=== PATIENT | male | born 1970 | race Caucasian/White ===

== ENCOUNTER 2017-04-10 15:23 | Emergency (ER) | payer OTHER ==
[~2017-04-10] VITALS: Ht 177.8 cm; Wt 73.9 kg
[~2017-04-10 15:23] MED LIST: NOMEDS *; VICODIN 5/500 T1 TAB PO; VOLTAREN75 MG PO
--- NOTE | 2017-04-10 16:48 | [facility]gent Treatment [facility] Report ---
History of Present Issue Date/Time Seen by Provider 04/10/17 1647 Visit Reason Pt arrived:Walked Presenting Problem:PT IS C/O ACHES/CHILLS AND A SORE THROAT Location if Accident: Onset of symptoms date/time:/ or onset unknown for:MEDICAL HX UNKNOWN Have you (or family members/close friends) recently traveled outside the [place]? N If Yes, where/when: Have you had exposure to infectious disease within the past month? TB? Other? Specify: c/o bodyaches, chills, sore throat, sinus pressure, nasal congestion, ear pressure x1.5 weeks. Was seen at [facility] in [place] one week ago. Strep neg. Fluid on ears and slightly erythematous throat he reports. Told viral. Sudafed and mucinex help "but wear off". Hasn't taken or tried anything else. NO known sick contacts. Unsure about fevers. Nonsmoker. No form of tobacco use. Source patient Exam Limitations no limitations ALLERGIES Coded Allergies: Penicillins (04/10/17) vancomycin (04/10/17) Home Medications Reported Medications No Home Medications (NO HOME MEDICATIONS) 1 X * ONCE History Medical History General Angina: No OR: No Hypertension? No Hyperlipidemia? No CHF? No COPD? No Asthma? No CVA? No Seizures? No Diabetes? No GB Disease: No MRSA? No TB? No Cancer? No Immunization HX DT/Tetanus 5-10 YRS Surgical Hx Previous Surgery?Y Hernia Repair WISDOM TEETH EXTRACTION CYST REMOVAL FROM RT LEG ORAL SURGERY Social History Smoking Hx Smoker: Never Smoker Tobacco: No Alcohol Alcohol: No Review of Systems All Other Systems Reviewed and Negative Constitutional see HPI, denies weakness Eyes denies drainage, denies inflammation ENT see HPI. denies: ear discharge, throat swelling. Respiratory cough (minimal, nonprod), denies shortness of breath, denies wheezing Cardiovascular denies chest pain, denies palpitations Gastrointestinal denies no symptoms reported Musculoskeletal see HPI Skin denies rash Psychiatric/Neurological headache ("mostly feels full") Physical Exam Vital Signs Vital Signs Date Time Temp Pulse Resp B/P Pulse O2 O2 Flow FiO2 Ox Delivery Rate 04/10 1710 98.6 96 20 132/92 98 04/10 1638 98.6 96 20 132/92 98 General Appearance normal appearance, no apparent distress, pleasant Eye Exam - bilateral eye normal exam Ear, Nose, Throat jaren EACs and TM unremarkable, jaren nares w/ mild nasal congestions but thick yellow drainage, cobblestoning but otherwise normal pharynx, dark brown discoloration to tongue (pt adamently denies tobacco use, present x weeks, attributed it to coffee, denies change, no pain), moderate frontal sinus TTP, no maxillary sinus tenderness Neck non-tender, supple Respiratory Status No: respiratory distress, productive cough, non productive cough. Lung Sounds anterior: lungs clear. posterior: lungs clear. bilateral: lungs clear. Cardiovascular regular rate/rhythm, no peripheral edema, no murmur Neurologic alert, oriented x 3 Mental status normal mood/affect Skin normal color, warm/dry Lymphatic no adenopathy Medical Decision Making LABS/Meds/Orders Pt receiving controlled substance in ED? No Results/Orders Orders Procedure Date/time Status [facility] FLU A,B 04/10 1644 Active Departure Departure Time of Disposition 1706 Disposition DC Home or Self Care(routine) Clinical Impression Primary Impression: Acute frontal sinusitis Qualifiers: Recurrence: non-recurrent Qualified Code: J01.10 - Acute frontal sinusitis, unspecified Secondary Impressions: Tongue discoloration Condition STABLE Referrals NO REFERRAL Follow up with your primary care doctor for new, worsening or unresolved symptoms related to your sinus symptoms but call Wednesday and schedule follow up appointment to discuss tongue discoloration. Patient Instructions DI for Sinusitis Additional Instructions * Start antibiotic and be sure to take as ordered for the FULL length of time even if you feel better. Since you have had a severe reaction to penicillin in the past and can not confirm you have taken cephlosporin antibiotics, I have prescribed doxycycline. Sinus infections do not get better overnight. It may take 2-3 days to notice much improvement so be sure to use conservative measures as discussed for symptoms. * OK to continue Sudafed since it has been helping. * Flonase 2 sprays each nostril daily to help with nasal congestion, sinus and ear pressure/inflammation * Start steroid today. Helps with inflammation therefore, pressure and congestion. Follow directions on package. Rvwd side effects. Pt reports they have taken them before. * Lots of fluids * Sleep elevated * Humidifier/vaporizer Discharge Counseling Counseled pt/family regarding diagnosis, medications/RX, home care, follow up needs Prescriptions Current Visit Scripts Doxycycline Hyclate (Vibramycin) 100 MG PO BID #20 CAP Fluticasone Propionate (Flonase 50 Mcg Nasal [place]) 2 SPRAY NA DAILY #1 BOT Prednisone (Prednisone 20MG) 20 MG PO BID #10 TAB at 1711
[2017-04-10 17:10] VITALS: BP 132/92
[2017-04-10] MEDS ORDERED: DOXYCYCLINE HY100 M4 PO (17:10)
[2017-04-10] MEDS ORDERED: PREDNISONE 20MG20 MG PO (17:10)
[2017-04-10] MEDS ORDERED: FLONASE 50 MCG16 GM (17:10)
== END 2017-04-10 17:19 | disposition home or self-care (01) ==
LOC: UTC 15:23
DX: J01.10 Acute frontal sinusitis, unspecified (principal)